=== PATIENT | female | born 1990 | race Caucasian/White ===

== ENCOUNTER 2020-06-07 08:47 | Outpatient (CLI) | payer BC, SELFPAY ==
[2020-06-07 10:31] LABS: Basophils Absolute Auto 0.1 K/mm3 (0.0-0.1); Basophils Percent Auto 0.5 % (0.2-1.2); Eosinophils Absolute Auto 0.1 K/mm3 (0-0.3); Eosinophils Percent Auto 1.1 % (0-4.4); Hematocrit 33.1 % (37.0-47.0); Hemoglobin 11.3 g/dL (12.0-15.0); Immature Granulocyte Absolute 0.13 K/mm3 (0.00-0.031); Immature Granulocyte Percent A 1.3 % (0-0.5); Lymphocytes Absolute Auto 2.12 K/mm3 (0.9-3.2); Lymphocytes Percent Auto 21.7 % (18.3-44.2); Mean Corpuscular HGB Conc 34.1 g/dl (32-36); Mean Corpuscular Hemoglobin 30.8 pg (26-34); Mean Corpuscular Volume 90.2 fl (80-100); Mean Platelet Volume 9.7 fl (7.4-10.4); Monocytes Absolute Auto 0.5 K/mm3 (0.1-0.6); Neutrophils Absolute Auto 6.9 K/mm3 (1.3-6.7); Neutrophils Percent Auto 70.4 % (45.5-73.1); Platelet Count Result 215 k/mm3 (150-375); Red Blood Count 3.67 M/mm3 (4.2-5.4); Red Cell Distribution Width 12.5 % (11.5-14.5); White Blood Count 9.8 K/mm3 (4.5-10.0)
[2020-06-07 10:45] LABS: Glucose 1 Hour PP 50gm Dose 165 mg/dL
== END 2020-06-07 08:48 | disposition home or self-care (01) ==
PROVIDERS: Visit Provider Student in an Organized Health Care Education/Training Program
DX: Z34.82 Encounter for supervision of other normal pregnancy, second trimester (principal); Z3A.00 Weeks of gestation of pregnancy not specified
CPT/HCPCS: 36415; 82947; 85025

== ENCOUNTER 2020-06-14 07:35 | Outpatient (CLI) | payer BC, SELFPAY ==
[2020-06-14 08:06] LABS: Glucose Fasting Gestational 96 mg/dL (>/=95)
[2020-06-14 09:28] LABS: Glucose 1 Hour Gest 131 mg/dL (>/=180)
[2020-06-14 11:07] LABS: Glucose 2 Hour Gest 126 mg/dL (>/= 155)
[2020-06-14 11:54] LABS: Glucose 3 Hour Gest 74 mg/dL (>/=140)
== END 2020-06-14 07:36 | disposition home or self-care (01) ==
PROVIDERS: Visit Provider Student in an Organized Health Care Education/Training Program
DX: R73.09 Other abnormal glucose (principal)
CPT/HCPCS: 36415; 82951; 82952

== ENCOUNTER 2020-07-05 11:34 | Outpatient (CLI) | payer BC, SELFPAY ==
[2020-07-05 12:02] LABS: Basophils Percent Auto 0.3 % (0.2-1.2); Eosinophils Absolute Auto 0.2 K/mm3 (0-0.3); Eosinophils Percent Auto 1.8 % (0-4.4); Hematocrit 32.9 % (37.0-47.0); Hemoglobin 10.9 g/dL (12.0-15.0); Immature Granulocyte Absolute 0.13 K/mm3 (0.00-0.031); Immature Granulocyte Percent A 1.3 % (0-0.5); Lymphocytes Absolute Auto 2.12 K/mm3 (0.9-3.2); Lymphocytes Percent Auto 20.6 % (18.3-44.2); Mean Corpuscular HGB Conc 33.1 g/dl (32-36); Mean Corpuscular Hemoglobin 29.8 pg (26-34); Mean Corpuscular Volume 89.9 fl (80-100); Mean Platelet Volume 9.5 fl (7.4-10.4); Monocytes Absolute Auto 0.8 K/mm3 (0.1-0.6); Monocytes Percent Auto 8.1 % (2.6-8.5); Neutrophils Percent Auto 67.9 % (45.5-73.1); Platelet Count Result 213 k/mm3 (150-375); Red Blood Count 3.66 M/mm3 (4.2-5.4); Red Cell Distribution Width 12.1 % (11.5-14.5); White Blood Count 10.3 K/mm3 (4.5-10.0)
[2020-07-05 12:58] LABS: HIV 1/2 Ab P24 Ag Result Negative (Negative)
[2020-07-06 07:05] LABS: Rapid Plasma Reagin Non-Reactive (NonReactive)
== END 2020-07-05 11:35 | disposition home or self-care (01) ==
LOC: ANHLAB 11:36
PROVIDERS: Visit Provider Student in an Organized Health Care Education/Training Program
DX: Z34.93 Encounter for supervision of normal pregnancy, unspecified, third trimester (principal); Z3A.00 Weeks of gestation of pregnancy not specified
CPT/HCPCS: 36415; 85025; 86592; 86703; G0432

== ENCOUNTER 2020-08-16 09:39 | Outpatient (CLI) | payer BC, SELFPAY ==
[2020-08-16] VITALS (8 sets, daily range): BP systolic 109–127; BP diastolic 73–80; PULSE 65–86
[2020-08-16 10:41] LABS: Basophils Percent Auto 0.3 % (0.2-1.2); Eosinophils Absolute Auto 0.1 K/mm3 (0-0.3); Eosinophils Percent Auto 1.1 % (0-4.4); Hematocrit 30.7 % (37.0-47.0); Hemoglobin 10.1 g/dL (12.0-15.0); Immature Granulocyte Percent A 1.1 % (0-0.5); Lymphocytes Absolute Auto 1.78 K/mm3 (0.9-3.2); Lymphocytes Percent Auto 20.4 % (18.3-44.2); Mean Corpuscular HGB Conc 32.9 g/dl (32-36); Mean Corpuscular Volume 88.2 fl (80-100); Monocytes Absolute Auto 0.6 K/mm3 (0.1-0.6); Monocytes Percent Auto 7.1 % (2.6-8.5); Neutrophils Absolute Auto 6.1 K/mm3 (1.3-6.7); Platelet Count Result 169 k/mm3 (150-375); Red Blood Count 3.48 M/mm3 (4.2-5.4); Red Cell Distribution Width 13.2 % (11.5-14.5); White Blood Count 8.7 K/mm3 (4.5-10.0)
--- NOTE | 2020-08-16 10:42 | PC.NURSE ---
1020--Pt reports elevated BP's at home and headache yesterday relieved with 1 dose of Tylenol. Reports mild headache today-07/10 with no Tylenol taken. Minimal swelling noted; denies RUQ pain; minimal visual disturbances that come and go.
[2020-08-16 10:43] LABS: Add Urine Microscopic? NO; Appearance Urine Clear (Clear); Bilirubin Urine Negative (Negative); Blood Urine Negative (Negative); Color Urine Straw (Yellow); Glucose Urine UA Negative (Negative); Ketones Urine Negative (Negative); Leukocyte Esterase Ur Negative LEU/UL (NEGATIVE); Nitrate Urine Negative (Negative); Protein Urine Negative (Negative); Specific Grav Ur 1.005 (1.001-1.035); Urobilinogen Urine Negative mg/dL (<2.0)
[2020-08-16 10:54] LABS: Creatinine Urine 29.1 mg/dL; Total Protein Urine Random 18 mg/dL; Ur Ttl Prot Creatinine Ratio 0.62 mg/mg (0-0.20)
[2020-08-16 11:30] LABS: Alanine Aminotransferase 15 U/L (4-35); Albumin Level 3.4 g/dL (3.5-5.1); Alkaline Phosphatase 100 U/L (38-126); Anion Gap 7 mmol/L (8-16); Aspartate Amino Transferase 23 U/L (14-36); Bilirubin,Total 0.2 mg/dL (0.2-1.3); Blood Urea Nitrogen 12 mg/dL (7-17); Calcium 9.2 mg/dL (8.4-10.2); Carbon Dioxide 22 mmol/L (22-30); Chloride 106 mmol/L (98-107); Estimated Glomerular Filt Rate > 60; Glucose 104 mg/dL (65-105); Potassium 3.9 mmol/L (3.4-5.0); Sodium 135 mmol/L (137-145); Uric Acid 7.1 mg/dL (2.5-7.5)
--- NOTE | 2020-08-16 12:16 | PC.NURSE ---
1145--Reported labs to Dr. Ramirez. DC orders given with orders to start 24hour urine and FU in office on Saturday.
== END 2020-08-16 12:05 | disposition home or self-care (01) ==
LOC: ANHOBOP 10:07 → ANHOBPP 08-22 07:58
PROVIDERS: Obstetrics & Gynecology; Visit Provider Student in an Organized Health Care Education/Training Program
DX: O13.9 Gestational [pregnancy-induced] hypertension without significant proteinuria, unspecified trimester (principal); Z3A.00 Weeks of gestation of pregnancy not specified
CPT/HCPCS: 36415; 59025; 80053; 81003; 82570; 84156; 84550; 85025; 87086; 99199

== ENCOUNTER 2020-08-17 11:05 | Outpatient (NON) | payer BC, SELFPAY ==
[2020-08-17 11:16] VITALS: BMI 28.8
[2020-08-17 11:34] LABS: Collection Time Urine 24 HOURS
[2020-08-17 12:09] LABS: Total Protein Urine Random 16 mg/dL
[2020-08-17 12:10] LABS: Total Protein Urine 24 Hr 368 MG/DAY (28-141); Total Volume 24 Hour Urine 2300 ml
[2020-08-17 12:10] LABS: Creatinine Urine 55.2 mg/dL; Patient Weight 178 Lbs
[2020-08-17 12:20] LABS: Creatinine Clearance Urine 100.5 ml/min (75-125); Total Volume 24 Hour Urine 2300 ml
== END 2020-08-17 11:06 ==
PROVIDERS: Obstetrics & Gynecology; Visit Provider Student in an Organized Health Care Education/Training Program
DX: Z34.90 Encounter for supervision of normal pregnancy, unspecified, unspecified trimester (principal); Z3A.00 Weeks of gestation of pregnancy not specified
CPT/HCPCS: 81050; 82575; 84156

== ENCOUNTER 2020-08-18 14:21 | Outpatient (CLI) | payer BC, SELFPAY ==
[2020-08-18 14:45] VITALS: BP 118/72; PULSE 79
[2020-08-18 15:00] VITALS: BP 114/71; PULSE 75
[2020-08-18 15:06] LABS: Basophils Percent Auto 0.4 % (0.2-1.2); Eosinophils Absolute Auto 0.1 K/mm3 (0-0.3); Eosinophils Percent Auto 1.2 % (0-4.4); Hemoglobin 10.5 g/dL (12.0-15.0); Immature Granulocyte Absolute 0.09 K/mm3 (0.00-0.031); Lymphocytes Absolute Auto 2.14 K/mm3 (0.9-3.2); Lymphocytes Percent Auto 23.4 % (18.3-44.2); Mean Corpuscular HGB Conc 32.8 g/dl (32-36); Mean Corpuscular Hemoglobin 28.7 pg (26-34); Mean Corpuscular Volume 87.4 fl (80-100); Mean Platelet Volume 10.8 fl (7.4-10.4); Monocytes Absolute Auto 0.6 K/mm3 (0.1-0.6); Monocytes Percent Auto 6.9 % (2.6-8.5); Neutrophils Absolute Auto 6.2 K/mm3 (1.3-6.7); Neutrophils Percent Auto 67.1 % (45.5-73.1); Platelet Count Result 181 k/mm3 (150-375); Red Blood Count 3.66 M/mm3 (4.2-5.4); Red Cell Distribution Width 13.2 % (11.5-14.5); White Blood Count 9.2 K/mm3 (4.5-10.0)
[2020-08-18 15:15] VITALS: BP 109/70
[2020-08-18 15:20] LABS: Alanine Aminotransferase 16 U/L (4-35); Albumin Level 3.7 g/dL (3.5-5.1); Alkaline Phosphatase 107 U/L (38-126); Anion Gap 6 mmol/L (8-16); Aspartate Amino Transferase 25 U/L (14-36); Bilirubin,Total 0.3 mg/dL (0.2-1.3); Blood Urea Nitrogen 13 mg/dL (7-17); Calcium 9.6 mg/dL (8.4-10.2); Carbon Dioxide 22 mmol/L (22-30); Chloride 105 mmol/L (98-107); Estimated Glomerular Filt Rate > 60; Glucose 94 mg/dL (65-105); Sodium 133 mmol/L (137-145); Uric Acid 7.3 mg/dL (2.5-7.5)
[2020-08-18 15:45] VITALS: BP 122/82
[2020-08-18 16:00] VITALS: BP 122/82; PULSE 75
== END 2020-08-18 16:00 | disposition home or self-care (01) ==
LOC: ANHOBOP 14:25
PROVIDERS: Visit Provider Student in an Organized Health Care Education/Training Program
DX: O13.9 Gestational [pregnancy-induced] hypertension without significant proteinuria, unspecified trimester (principal); Z3A.00 Weeks of gestation of pregnancy not specified
CPT/HCPCS: 36415; 59025; 80053; 84550; 85025

== ENCOUNTER 2020-08-22 14:27 | Outpatient (CLI) | payer BC, SELFPAY ==
[2020-08-22 14:52] LABS: Hematocrit 31.5 % (37.0-47.0); Hemoglobin 10.4 g/dL (12.0-15.0); Mean Corpuscular Hemoglobin 29.1 pg (26-34); Mean Platelet Volume 11.2 fl (7.4-10.4); Platelet Count Result 166 k/mm3 (150-375); Red Blood Count 3.58 M/mm3 (4.2-5.4); Red Cell Distribution Width 13.3 % (11.5-14.5); White Blood Count 9.6 K/mm3 (4.5-10.0)
[2020-08-23 07:40] LABS: Rapid Plasma Reagin Non-Reactive (NonReactive)
== END 2020-08-22 14:28 | disposition home or self-care (01) ==
PROVIDERS: Visit Provider Student in an Organized Health Care Education/Training Program
DX: Z34.93 Encounter for supervision of normal pregnancy, unspecified, third trimester (principal); Z3A.00 Weeks of gestation of pregnancy not specified
CPT/HCPCS: 36415; 85027; 86592; 86850; 86900; 86901

== ENCOUNTER 2020-08-23 05:44 | Inpatient (IN) | payer BC, SELFPAY ==
--- NOTE | 2020-08-02 15:29 | PC.NURSE ---
PATIENT IS A PREV C/S. PATIENT STATES SHE WANTS TO --CONSENT SIGNED. PATIENT STATES DR GUNN IS SCHEDULING HER FOR C/S ON 08/23/[address] GUNN FEELS BABY IS BIG AND BABY IS BREECH AT THIS TIME PATIENT GIVEN INSTRUCTED FOR C/S-NPO AFTER MIDNIGHT THE NIGHT BEFORE SURGERY,BE IN OB 2 HOURS BEFORE SURGERY TIME AND GIVEN REQUISITION FOR PRE-OP LAB DRAW
[2020-08-23] VITALS (64 sets, daily range): BP systolic 87–128; BP diastolic 54–89; PULSE 51–88; RESP 14–18; TEMP 36.1–36.9; O2SAT 97–100; BMI 29.2
[2020-08-23] MEDS: LACTATED RINGERS 1,000 ML 125 ML IV CONT (06:38)
--- NOTE | 2020-08-23 06:42 | LDADM ---
This patient, Naty Barnes, was admitted to Labor/Delivery/Recovery 120 on 08/23/20 at 05:44. Plans for labor, pain management and were discussed with patient. Patient/family oriented to hospital policies and general routines including ID bracelet, bed and alarms, visiting hours, pain management, procedures, bathroom and other care routines, personal items, smoking policy, room service/diet and guest tray routines, infant security routines, and visiting hours. Patient/Family are encouraged to report perceived risks to care and to ask questions if they do not understand what they are told or what they should do. See OBIX for further documentation.
--- NOTE | 2020-08-23 07:11 | PM.IMHP ---
H&P: HPI History of Present Illness Date/Time: 08/23/20 07:11 Patient is a last menstrual period 11/24/2019. Patient is currently 39w gestation with an estimated due date of August 30, 2020. Patient is dated by her last menstrual period consistent with an ultrasound on January 25, 2020 at 9 weeks gestation performed at an outside facility. Patient established care at our practice as a transfer patient at 20w gestation who moved from [place], [place]. She has a history of a previous section x 1. Patient desired a TOLAC, however, fetus currently in breech presentation and has been in breech presentation for several weeks. Fetus has also persistently been suspected LGA with EFW >97-99%. Given this factors as well as previous section, decision was made to proceed with a repeat C/S. Patient does have a history of preeclampsia during previous . BP measurements have remained WNL throughout this and patient was on low-dose ASA. Patient reports feeling well today. Denies any vaginal bleeding, leakage of fluid, or contractions. Reports good movement. Chief Complaint: Repeat section Narrative: Naty Barnes is a 30 year old female Review of Systems Review of Systems: All systems reviewed & are unremarkable except as noted in HPI and below Constitutional: Constitutional: Reports as per HPI and Reports no additional constitutional complaints Eyes: Eyes: Reports as per HPI and Reports no additional eye complaints ENT: Reports system reviewed and no additional complaints, except as documented, Reports as per HPI, Reports Normal hearing present and Denies headache(s) Cardiovascular: Cardiovascular: Reports as per HPI, Reports no additional cardiovascular complaints, Denies chest pain and Denies dyspnea Respiratory: Respiratory: Reports as per HPI, Reports no additional respiratory complaints, Denies cough and Denies dyspnea Gastrointestinal: Gastrointestinal: Reports as per HPI, Reports no additional gastrointestinal complaints, Denies abdominal pain, Denies change in bowel habits, Denies change in stool character, Denies nausea and Denies vomiting Genitourinary: Genitourinary: Reports no additional female genitourinary complaints, Reports as per HPI, Denies abnormal vaginal bleeding, Denies genital lesions, Denies hot flashes, Denies dyspareunia, Denies pelvic pain, Denies sexual dysfunction, Denies urinary incontinence, Denies vaginal discharge, Denies vaginal dryness and Denies vaginal odor Musculoskeletal: Musculoskeletal: Reports no additional musculoskeletal complaints and Reports as per HPI Integumentary/Breasts: Skin/Breast: Reports system reviewed and no additional complaints, except as docu, Reports as per HPI, Denies breast pain and Denies nipple discharge Neurologic: Reports system reviewed and no additional complaints, except as documented, Reports as per HPI, Reports Normal hearing present and Denies headache(s) Psychiatric: Psychiatric: Reports no additional psychiatric complaints, Reports as per HPI, Denies anxiety and Denies depression Endocrine: Endocrine: Reports no additional endocrine complaints and Reports as per HPI Hematologic/Lymphatic: Hematologic/Lymphatic: Reports no additional hematologic/lymphatic complaints and Reports as per HPI Allergic/Immunologic: Allergic/Immunologic: Reports no additional allergic/immunologic complaints and Reports as per HPI PMF Past Medical History Medical History Anxiety 2005 Asthma 2016 Depression 2017 History of hyperlipidemia History of pre-eclampsia 08/2017 Surgical History Surgical History History of section 08/2017 History of colonoscopy 2007 History of left nephrectomy 1993 History of tonsillectomy and adenoidectomy Family History Family History (Reviewed 08/23/20 @ 07:16 by Hayder Don MD
[2020-08-23] MEDS: GENTAMICIN SULFATE INJ 340 MG in DEXTROSE 5% 100 ML 108.5 MG IVPB (07:14)
--- NOTE | 2020-08-23 07:15 | WPDANESEPPF ---
Anes - Initial Pre Proc Eval Date/Time: 08/23/20 07:15 Surgeon: Elvi Cyr MD Pre Op Diagnosis: Repeat C/S Patient Data Age: 30 Gender: F Height: 5 ft 6 in Weight: 82 kg Last Vital Signs Pulse 88 08/23/20 06:22 BP 117/88 08/23/20 06:22 Allergies Allergy/AdvReac Type Severity Reaction Status Date / Time Penicillins Allergy Unknown rash Verified 08/19/20 14:32 itching and gastritis Home Medications Medication Instructions Recorded Confirmed Type aspirin 81 mg tablet,delayed 81 mg PO DAILY 04/13/20 History release cetirizine 10 mg capsule 10 mg PO DAILY 04/13/20 History prenat.vits,german,wux-[id number] 1 tablet PO DAILY 04/13/20 History breast pump #1 ea 07/26/20 07/26/20 Rx Patient hx anesthesia problems: none Family hx anesthesia problems: none PMFSH Past Medical History Medical History Anxiety 2004 Asthma 2015 Depression 2017 History of hyperlipidemia History of pre-eclampsia 08/2017 Surgical History Surgical History History of section 08/2017 History of colonoscopy 2006 History of left nephrectomy 1993 History of tonsillectomy and adenoidectomy Family History Family History Grandparent Acute myocardial infarction Carcinoma of colon Father Hyperlipidemia Hypertension Mother , 2007 Brain cancer Bone cancer Lung cancer Other Patient's mother is Social History Social History Smoking status: Former smoker Alcohol intake: never Substance use: never Spiritual care concerns: No Anes - Eval Final PreProcedure Day of Procedure 08/23/20 07:15 Patient weight: overweight Heart: regular rate and rhythm Lungs: clear to auscultation Airway: Mallampati scale class II Neurological: alert and oriented Last oral intake: >/= 8 hours ASA classification: III Emergent: no Anesthetic plan: proceed Anesthesia type and monitoring: regional spinal and standard monitoring Informed Consent: The patient's anesthetic plan and its attendant risks and benefits were discussed with the patient/family/POA. Questions were solicited and answers provided to the satisfaction of the patient/family/POA.
--- NOTE | 2020-08-23 07:20 | WPDHPUPDATE1 ---
History and Physical Update Update Date/Time: 08/23/20 07:20 History and Physical has been reviewed, including an updated exam of the patient. There are NO changes in the patient's condition. Risks, benefits, and alternatives have been discussed and questions answered. Patient agrees to proceed with procedure.
--- NOTE | 2020-08-23 07:20 | PM.PROC ---
Procedure Note - Detailed Date of procedure: 08/23/20 Pre-op diagnosis: Repeat C/S Previous section x 1 Breech presentation Suspected macrosomia Post-op diagnosis: same Procedure performed: Repeat low transverse section via Pfannenstiel Description of procedure: The patient was taken to the operating room, where she self-transferred to the operating room table. Spinal anesthesia was administered and found to be adequate. The patient was placed in dorsal supine position with a leftward tilt. She was prepped and draped in the usual sterile fashion. Spinal anesthesia was tested and found to be adequate. A Pfannenstiel skin incision was made with a scalpel and carried through to underlying layer of fascia with the Bovie. The fascia was incised in the midline and the incision was extended laterally with the use of forceps and Perales scissors. The inferior aspect of the fascial incision was grasped with Isabela clamps, elevated, and the underlying rectus muscle were dissected off with Perales scissors. Attention was then turned to the superior aspect of the fascial incision, which in a similar manner, was grasped with Isabela clamps, elevated, and the underlying rectus muscles were also dissected off with Perales scissors. Minimal scar tissue was noted and transected with Perales scissors. The rectus muscles were in the midline and the peritoneal cavity was entered bluntly. This incision was extended superiorly and inferiorly with good visualization of the bladder and care was taken to avoid blood vessels. A bladder blade was inserted. The vesicouterine peritoneum was identified and incised sharply with Metzenbaum scissors. This incision was extended laterally with Metzenbaum scissors and a bladder flap was created digitally. The bladder blade was replaced. A low-transverse uterine incision was made with a scalpel. This incision was extended laterally with bandage scissors. Amniotomy was performed. Clear amniotic fluid was noted. The infant's buttocks were noted right at the level of the incision, grasped, and delivered through the incision. The infant was slowly guided through the incision. The infant was gently rotated to the left side. The infant's right lower extremity was flexed and delivered. The infant was rotated to the right side where, similarly, the 's left lower extremity was delivered. A surgical towel was wrapped around the and the was guided through the incision to the level of the scapulae. The was rotated to the left side and the right arm was flexed and delivered. The infant was again rotated to the right side and the left arm was flexed and delivered. The infant's head was then flexed and delivered easily and atraumatically. The 's nose and mouth were suctioned bulb suction. The infant was crying spontaneously. The cord was clamped and cut and the infant was handed off to waiting nursing staff. A segment of cord was collected for cord gases. Cord blood was also collected. The placenta was then delivered manually with gentle uterine massage. Uterus was exteriorized and cleared of all clots and debris. The uterine incision was reapproximated with 0 Vicryl in a running, locked fashion. An area beneath the incision was noted to be bleeding and a few figure of eight sutures using 0 Vicryl were placed ensuring hemostasis. A second imbricating layer using 0 Monocryl performed. Excellent hemostasis was noted. On inspection, the uterus, ovaries, and fallopian tubes appeared to be normal bilaterally. The uterus was replaced into the abdominal cavity. The gutters were cleared of all clots and debris. The uterine incision was inspected again and noted to be hemostatic. Hemaderm was applied across the uterine incision. Interceed was also applied across the uterine incision and anterior surface of the uterus. The peritoneum was reapproximated with 2-0 Monocryl. The fascia was then closed with 0 Vicryl in a running fashion. The subcu
[2020-08-23] MEDS: CLINDAMYCIN 900 MG/D5W 50 ML 900 MG/50 ML PIGGYBACK 50 MG IVPB (07:26)
--- NOTE | 2020-08-23 09:08 | PM.OBPRVD ---
OB - Delivery Note Procedure Delivery date: 08/23/20 Procedure: Procedures Operation Date: 08/23/20 07:30 Actual Procedures Side Surgeon p Section Elvi Cyr MD events: Previous Route of delivery: Specimen: Yes (placenta and cord, cord blood, cord gases) Quantitative Blood Loss (ml): 220 Anesthesia type: Spinal Disposition: floor Complications: No immediate complications [place] Baby Date of : 08/23/20 Time of : 07:55 Weeks of gestation at delivery: 39 gender: Male Weight (pounds): 8 Weight (ounces): 6 presentation: carlos breech Placenta delivery description: Manual Removal cord vessel description: 3 Vessels score one minute: 9 score five minutes: 9
[2020-08-23] MEDS: OXYTOCIN 30 UNITS/NS 500 ML 30 UNITS/500 ML BAG 125 UNITS IV CONT (09:48)
[2020-08-23] MEDS: IBUPROFEN 600 MG TABLET PO (20:16)
[2020-08-24 04:15] VITALS: BP 106/71; PULSE 82; RESP 14; TEMP 37; O2SAT 98
[2020-08-24] MEDS: IBUPROFEN 600 MG TABLET PO ×3 (04:22→17:05)
[2020-08-24 06:51] LABS: Basophils Percent Auto 0.3 % (0.2-1.2); Eosinophils Absolute Auto 0.1 K/mm3 (0-0.3); Eosinophils Percent Auto 0.9 % (0-4.4); Hematocrit 29.6 % (37.0-47.0); Hemoglobin 9.4 g/dL (12.0-15.0); Immature Granulocyte Absolute 0.09 K/mm3 (0.00-0.031); Immature Granulocyte Percent A 0.9 % (0-0.5); Lymphocytes Percent Auto 13.7 % (18.3-44.2); Mean Corpuscular HGB Conc 31.8 g/dl (32-36); Mean Corpuscular Hemoglobin 28.1 pg (26-34); Mean Corpuscular Volume 88.6 fl (80-100); Mean Platelet Volume 11.3 fl (7.4-10.4); Monocytes Absolute Auto 0.6 K/mm3 (0.1-0.6); Monocytes Percent Auto 5.9 % (2.6-8.5); Neutrophils Absolute Auto 7.5 K/mm3 (1.3-6.7); Neutrophils Percent Auto 78.3 % (45.5-73.1); Platelet Count Result 164 k/mm3 (150-375); Red Blood Count 3.34 M/mm3 (4.2-5.4); Red Cell Distribution Width 13.4 % (11.5-14.5); White Blood Count 9.5 K/mm3 (4.5-10.0)
[2020-08-24 07:15] VITALS: BP 116/72; PULSE 73; RESP 18; TEMP 36.9; O2SAT 100
--- NOTE | 2020-08-24 07:35 | WPDANLDPN2 ---
Anes-Prog Note L&D Date/Time: 08/24/20 07:35 Comfortable throughout: section Neuraxial method: spinal Epidural/Spinal procedure site: clean & non-tender Neuro status: Neuro function grossly intact. Cardiovascular status: normal Respiratory status: normal Airway patency: baseline Mental status: baseline Post-Op hydration status: normal Vital Signs: Last Vital Signs Temp 37.0 C 08/24/20 04:15 Pulse 82 08/24/20 04:15 Resp 14 08/24/20 04:15 BP 106/71 08/24/20 04:15 Pulse Ox 98 08/24/20 04:15 Pain score (VAS): 0 I/O: Intake & Output 08/23/20 08/23/20 08/24/20 15:59 23:59 07:59 Intake Total 100 1500 600 Output Total 970 3600 1500 Balance -397 -6436 -787 Post-procedural complaints: none Patient feedback: Patient satisfied with anesthetic care.
--- NOTE | 2020-08-24 07:35 | WPDANLDNPN2 ---
Anes-Prog Note L&D-Neuraxial Date/Time: 08/24/20 07:35 Neuraxial medications: intrathecal PF morphine Opiod-related complaints: none Patient feedback: Patient satisfied with post-operative pain management.
[2020-08-24] MEDS: DOCUSATE SODIUM 100 MG CAPSULE PO ×2 (08:36→17:02)
[2020-08-24] MEDS: POLYSACCHARIDE IRON COMPLEX 150 MG CAPSULE PO ×2 (08:36→17:02)
[2020-08-24] MEDS: MULTIVIT/MIN/PREN/FOL AC/IRON TABLET 1 TAB PO (08:36)
--- NOTE | 2020-08-24 10:37 | PM.OBPNVD ---
OB - PN: Subj Subjective Date/time seen: 08/24/20 10:37 Patient doing well this morning. Pain well controlled with medication. Denies any headache, chest pain, shortness of breath, nausea, or vomiting. Tolerating p.o. diet. Ambulating without difficulty. Feliciano catheter removed this morning. Has voided once since removal. No flatus yet. OB - PN: Obj Data Labs CBC & Chem 7: 08/24/20 04:22 Labs: Laboratory Results - last 24 hr 08/24/20 04:22 WBC 9.5 RBC 3.34 L Hgb 9.4 L Hct 29.6 L MCV 88.6 MCH 28.1 MCHC 31.8 L RDW 13.4 Plt Count 164 MPV 11.3 H Immature Gran % (Auto) 0.9 H Neut % (Auto) 78.3 H Lymph % (Auto) 13.7 L Yancey % (Auto) 5.9 Eos % (Auto) 0.9 Baso % (Auto) 0.3 Lymph # (Auto) 1.30 Yancey # (Auto) 0.6 Eos # (Auto) 0.1 Baso # (Auto) 0.0 Abs Immat Gran (auto) 0.09 H Absolute Neuts (auto) 7.5 H Absolute Nucleated RBC 0.0 Nucleated RBC % 0.0 OB - PN A/P Assessment and Plan (1) Delivery by section using transverse incision of lower segment of uterus: Code(s): O82 - Encounter for delivery without indication Status: Acute Assessment and Plan: POD#1 doing well continue routine postoperative care pain management PRN encourage ambulation Time Spent With Patient Time: Total time spent is greater than 50% in coordination of care (as documented) at patient's floor/unit and/or counseling patient: Exam Const: General: cooperative, comfortable and no acute distress GI: Inspection: normal to inspection GI Palp: Yes Soft to palpation and Yes Tenderness to palpation present (GI) (appropriately tender) Other: fundus below umbilicus, inc c/d/i Extrem: Right lower extremity: no edema Left lower extremity: no edema Other: no calf tenderness
[2020-08-24] MEDS: SIMETHICONE 80 MG TAB.CHEW PO (17:03)
[2020-08-24 20:00] VITALS: BP 107/73; PULSE 74; RESP 16; TEMP 37; O2SAT 99
[2020-08-25] MEDS: IBUPROFEN 600 MG TABLET PO ×2 (00:25→08:15)
[2020-08-25] MEDS: POLYSACCHARIDE IRON COMPLEX 150 MG CAPSULE PO (08:15)
[2020-08-25] MEDS: DOCUSATE SODIUM 100 MG CAPSULE PO (08:15)
[2020-08-25] MEDS: MULTIVIT/MIN/PREN/FOL AC/IRON TABLET 1 TAB PO (08:15)
--- NOTE | 2020-08-25 08:15 | PC.NURSE ---
Patient instructed to view the discharge video Mother & Baby Care, The First Two Weeks . Patient was given the opportunity and encouraged to ask questions. Patient verbalized understanding of information shared and has been given the mother/baby guide for home reference.
--- NOTE | 2020-08-25 08:16 | PM.OBPNVD ---
OB - PN: Subj Subjective Date/time seen: 08/25/20 08:16 Patient doing well this morning. pain well controlled with medication. Denies any headache, chest pain, shortness of breath, nausea, or vomiting. Tolerating p.o. diet. Ambulating well. Voiding without difficulty. Passing flatus. OB - PN: Obj Data Labs CBC & Chem 7: 08/24/20 04:22 OB - PN A/P Assessment and Plan (1) Delivery by section using transverse incision of lower segment of uterus: Code(s): O82 - Encounter for delivery without indication Status: Acute Assessment and Plan: POD#2 doing well continue routine postoperative care patient requesting dc home today, which I think is reasonable emergency precautions reviewed advised to f/u in 2 weeks for f/u visit and wound check Time Spent With Patient Time: Total time spent is greater than 50% in coordination of care (as documented) at patient's floor/unit and/or counseling patient: Exam Const: General: cooperative, healthy appearing, comfortable and no acute distress GI: Inspection: normal to inspection GI Palp: Yes Soft to palpation and No Tenderness to palpation present (GI) Other: fundus firm below umbilicus inc c/d/i Extrem: Right lower extremity: no edema Left lower extremity: no edema Other: no calf tenderness
--- NOTE | 2020-08-25 08:18 | P.DS_ITS ---
DS: Admitting Diagnosis Admitting Diagnosis Admitting Diagnosis: Repeat section OB - DS: Summary OB Procedures : None OB Procedures Intrapartum: OB Procedures: : None Peripartum Data Procedures: Procedures Operation Date: 08/23/20 07:30 Actual Procedures Side Surgeon p Section Elvi Cyr MD Time Spent with Patient Time attestation: Total time spent providing and/or coordinating discharge services: DS: Data Data Completed and Pending Pending studies at discharge: Pending at discharge 08/23/20 07:56 Surgical [PTH] Routine Discharge Plan Discharge Attending physician on discharge: Elvi Cyr Discharging Clinician: Elvi Cyr Anticipated Discharge Date/Time: 08/25/20 08:19 Patient Disposition: Home, Self-Care Activity: as tolerated and pelvic rest Diet: as tolerated and regular Discharge Instructions: Call office ([phone]) to schedule the following appointments: 1. Postoperative/wound check in 2 weeks. 2. visit in 4-6 weeks. You may take Ibuprofen 600mg every 6 hours as needed for pain. You were only taking Ibuprofen in the hospital following delivery. Therefore, I did not send in a prescription for a stronger pain medication. If you develop worsening pain after going home and with increased activity, please call the office and I will send in a stronger medication for you. No driving for at least two weeks. Pain medication may make you constipated. It may be helpful to take an [id number]-lnpudsl stool softener, such as Colace and/or Senokot, along with the pain medication to help lessen constipation. Call office or go to ED for pain not controlled with medication, headache, chest pain, shortness of breath, fever, chills, persistent nausea or vomiting, severe abdominal pain, heavy vaginal bleeding >2 pads/hour, foul vaginal discharge or odor, any redness near incision, severe pain, pus or drainage from incision site, or problems with your breasts. Patient Instructions: Antibiotic Form Stand Alone Forms: General Discharge Information Follow-up/Referrals: Elvi Cyr MD [Physician] - Discharge Medications: Continued prenat.vits,german,oeb-qpue-ekdet Tablet 1 tablet PO DAILY RF: 0 Discontinued aspirin 81 mg tablet,delayed release (DR/EC) 81 mg PO DAILY RF: 0 No Action (DME) breast pump [Pump In Style Advanced] Device See Rx Instructions .ROUTE .MEDSULY Qty: 1 RF: 0 Date of admission: 08/23/20 05:44 Primary Care Provider: PHYSICIAN,METAL BUILDING ASSEMBLER Admitting Provider: Elvi Cyr Attending physician on admission: Elvi Cyr Condition: Stable
[2020-08-25 08:54] VITALS: BP 124/77; PULSE 98; RESP 18; TEMP 37.6; O2SAT 99
--- NOTE | 2020-08-25 10:38 | PC.NURSE ---
Consulted with patient, reviewed infant feeding cues, frequencies, duration of feedings, feeding elimination flow sheet, and signs of adequate intake. Demonstrated stimulation techniques to wake infant for feeding. Assisted with infant to breast. Reviewed positioning/alignment, holding breast and asymmetrical latch on. Infant was able to latch correctly. Infant nursed eagerly, with steady draws and frequent swallowing noted. Reviewed signs of a correct latch, effective nursing and suck swallow ratio. Infant was able to maintain latch without discomfort to mother. Nipple care reviewed. Instructed mother to call out for RN assistance if she is unable to latch for feeding or she has discomfort with nursing. Instructed feeding should be initiated three hours from start of last feeding or if feeding cues are noted before. Mother voiced understanding of information shared. Mother verbalizes she is able to independently latch with appropriate positioning/alignment. She states she has nipple discomfort, is feeding as required and waking infant to feed if needed. latches with wide open mouth, demonstrated ways to maintain deep latch. has good movement of his tongue. Infant has had 11 effective feedings in the past 24 hours, and is currently meeting outcomes for weight, output, jaundice and feeding frequencies. Mother states she feels confident to continue effective at home. Reviewed transition to breast milk, signs of adequate intake, and engorgement/relief. Instructed to call ICP if intake/output less than required. Reviewed community resources on the [facility] website and in the Mom/Baby guide. Information on outpatient services provided. Mother has no further questions at this time.
--- NOTE | 2020-08-25 10:41 | PC.NURSE ---
Infant had bleeding from circumcision site with diaper change, reported to primary RN.
== END 2020-08-25 11:37 | disposition home or self-care (01) | DRG 788 ==
LOC: ANHLDR 05:48 → ANHOB2 11:24
PROVIDERS: Admitting Provider Student in an Organized Health Care Education/Training Program; Visit Provider Student in an Organized Health Care Education/Training Program
PROC: 10D00Z1 Extraction of Products of Conception, Low, Open Approach (ICD-10-PCS; CPT 59514; principal; 2020-08-23 07:30)
DX: O34.211 Maternal care for low transverse scar from previous cesarean delivery (principal); Z37.0 Single live birth; Z3A.39 39 weeks gestation of pregnancy; O36.63X0 Maternal care for excessive fetal growth, third trimester, not applicable or unspecified; O32.1XX0 Maternal care for breech presentation, not applicable or unspecified; O36.8330 Maternal care for abnormalities of the fetal heart rate or rhythm, third trimester, not applicable or unspecified
CPT/HCPCS: 36415; 85025; 85027; 86592; 86850; 86900; 86901; 88307; A9270; J0131; J1580; J2274; J2370; J2405; J2590; J7120

== ENCOUNTER 2020-12-29 19:50 | Emergency (ER) | payer BC, SELFPAY ==
[2020-12-29 20:00] VITALS: BP 123/84; PULSE 66; RESP 13; TEMP 36.4; O2SAT 100
[2020-12-29 20:05] VITALS: PULSE 66; RESP 16; TEMP 36.4; O2SAT 100
--- NOTE | 2020-12-29 20:37 | ED.HA ---
HPI - Headache General Chief Complaint: Headache Stated Complaint: Vision changes with Migraine Time Seen by Provider: 12/29/20 20:19 Source: patient Mode of arrival: ambulatory Limitations: no limitations History of Present Illness HPI Narrative: Patient is a 30-year-old female complaining of migraine headache that started a few days ago. Patient states that her headache is frontal, throbbing, nonradiating 8 out of 10 accompanied by blurred vision which she describes as aura which usually gets when she gets a migraine but this time it just lasted longer than usual. Patient states that she has a history of migraines and this is her typical headache. Patient states that this is her third migraine in 2 weeks. Patient denies any speech disturbance, focal weakness or numbness, unsteady gait, neck pain or stiffness, fever or chills. Related Data Home Medications Medication Instructions Recorded Confirmed prenat.vits,german,[id number] 1 tablet PO DAILY 04/13/20 08/23/20 Allergies Allergy/AdvReac Type Severity Reaction Status Date / Time Penicillins Allergy Unknown rash Verified 12/29/20 19:51 itching and gastritis Review of Systems Review of Systems: All systems reviewed & are unremarkable except as noted in HPI and below Constitutional: Constitutional: Denies body ache(s), Denies chills, Denies excessive sweating, Denies fatigue, Denies fever(s), Denies headache(s), Denies lethargy, Denies malaise, Denies weakness and Denies weight loss Eyes: Eyes: Denies blurry vision, Denies change in vision and Denies loss of vision ENT: Denies dizziness, Denies ear discharge, Denies headache(s), Denies lip swelling, Denies epistaxis, Denies nasal congestion, Denies neck pain, Denies throat swelling and Denies tongue swelling Cardiovascular: Cardiovascular: Denies chest pain, Denies chest pain at rest, Denies chest pain with activity, Denies diaphoresis, Denies rapid heart rate, Denies edema, Denies irregular heart rhythm, Denies lightheadedness, Denies palpitations, Denies dyspnea and Denies dyspnea on exertion Respiratory: Respiratory: Denies chest congestion, Denies cough, Denies hemoptysis, Denies dyspnea and Denies dyspnea on exertion Gastrointestinal: Gastrointestinal: Denies abdominal pain, Denies melena, Denies hematochezia, Denies diarrhea, Denies nausea, Denies vomiting and Denies hematemesis Musculoskeletal: Musculoskeletal: Denies abnormal gait, Denies deformity, Denies joint swelling, Denies limited range of motion, Denies neck pain and Denies numbness Neurologic: Denies Abnormal speech present, Denies abnormal gait, Denies confusion, Denies dizziness, Denies focal weakness, Denies loss of vision, Denies numbness, Denies Sensory deficit (Neuro) and Denies weakness Psychiatric: Psychiatric: Denies confusion, Denies depression, Denies auditory hallucinations, Denies homicidal ideation and Denies suicidal ideation Endocrine: Endocrine: Denies cold intolerance, Denies excessive sweating, Denies fatigue, Denies heat intolerance and Denies palpitations Hematologic/Lymphatic: Hematologic/Lymphatic: Denies easy bleeding and Denies easy bruising Allergic/Immunologic: Allergic/Immunologic: Denies lip swelling, Denies throat swelling and Denies tongue swelling PMFSH Past Medical History Medical History Anxiety 2005 Asthma 2016 Depression 2017 History of hyperlipidemia History of pre-eclampsia 08/2017 Surgical History Surgical History History of section x2 History of colonoscopy 2006 History of left nephrectomy 1993 History of tonsillectomy and adenoidectomy Family History Family History Grandparent Acute myocardial infarction Carcinoma of colon Father Hyperlipidemia Hypertension Mother , 2007 Brain cancer B
[2020-12-29] MEDS: diphenhydrAMINE HCl INJ 50 MG/ML VIAL 25 MG IV PUSH (20:59)
[2020-12-29] MEDS: SODIUM CHLORIDE 0.9% IV 1,000 ML 999 ML IV CONT (20:59)
[2020-12-29] MEDS: METOCLOPRAMIDE HCL INJ 10 MG/2 ML VIAL IV PUSH (20:59)
--- NOTE | 2020-12-29 21:54 | PC.NURSE ---
pt refused CT, notified, CT called to cancel.
[2020-12-29 22:39] VITALS: BP 123/81; PULSE 68; RESP 16; TEMP 36.7; O2SAT 100
== END 2020-12-29 22:39 | disposition home or self-care (01) ==
PROVIDERS: Emergency Provider Emergency Medicine
DX: G43.909 Migraine, unspecified, not intractable, without status migrainosus (principal); Z90.5 Acquired absence of kidney
CPT/HCPCS: 81025; 96361; 96374; 96375; 99284; J1200; J2765; J7030

== ENCOUNTER → 2021-01-10 09:48 | Outpatient (CLI) | payer BC, SELFPAY ==
--- NOTE | ~2021-01-10 | MR_ITS ---
EXAMINATION: MR brain/brain stem wo con DATE: 01/10/2021 10:20 INDICATION: Migraine headache with aura. TECHNIQUE: Magnetic resonance imaging (MRI) of the brain and brainstem was performed without intraven ous contrast. Sequences included sagittal and axial T1-weighted FSE, axial diffusion-weighted FS EPI, axial T2*-weighted GRE, axial T2-weighted FLAIR Propeller, and axial T2-weighted Propeller. Apparent diffusion coefficient (ADC) maps were created. COMPARISON: None. FINDINGS: There is a mildly increased T2-weighted signal intensity in the bilateral frontoparietal de ep white matter. There is no intracranial hemorrhage, acute infarction, or abnormal intracranial mass lesion. The ventricles are normal in size. The orbits are normal. The mastoid air cells are normal. There are trace bilateral mastoid effusions. IMPRESSION: 1. Mild nonspecific cerebral white matter disease. The differential diagnosis includes premature lunchroom worker tiny small vessel ischemic disease (especially if the patient has cardiovascular risk factors), demyel inating disease such as multiple sclerosis, drug abuse, vasculitis, or reactive astrocytosis (gliosis ) secondary to nonspecific etiology. Reviewed, dictated and finalized at location A. IMPRESSION: 1. Mild nonspecific cerebral white matter disease. The differential diagnosis i ncludes premature chronic small vessel ischemic disease (especially if the ying ent has cardiovascular risk factors), demyelinating disease such as multiple sc lerosis, drug abuse, vasculitis, or reactive astrocytosis (gliosis) secondary t o nonspecific etiology.
== END ==
PROVIDERS: PCP Nurse Practitioner Family; Visit Provider Nurse Practitioner Family
DX: G43.109 Migraine with aura, not intractable, without status migrainosus (principal); R93.0 Abnormal findings on diagnostic imaging of skull and head, not elsewhere classified
CPT/HCPCS: 70551

== ENCOUNTER 2021-07-18 11:28 | Outpatient (CLI) | payer BC, SELFPAY ==
[2021-07-18 13:16] LABS: Total Triiodothyronine (T3) 2.09 NG/ML (0.97-1.69)
[2021-07-18 21:13] LABS: Free T4 Free Thyroxine 1.11 ng/mL (0.78-2.19)
== END 2021-07-18 11:29 | disposition home or self-care (01) ==
PROVIDERS: Visit Provider Obstetrics & Gynecology
DX: R53.83 Other fatigue (principal)
CPT/HCPCS: 36415; 84439; 84443; 84480

== ENCOUNTER 2022-05-24 08:56 | Emergency (ER) | payer BC, SELFPAY ==
--- NOTE | ~2022-05-24 | XR_ITS ---
XR chest 2V DATE: 05/24/2022 09:45 INDICATION: Cough. Flu since Saturday. TECHNIQUE: PA and lateral views COMPARISON: None FINDINGS: Normal heart size. No hilar or mediastinal enlargement. No pulmonary infiltrate or consolid ation, pleural effusion or pulmonary vascular congestion or pneumothorax. Included skeletal structure s are unremarkable. IMPRESSION: No active cardiopulmonary disease Reviewed, dictated and finalized at location A. [facility] BOSS
[2022-05-24 08:59] VITALS: BP 118/76; PULSE 90; RESP 16; TEMP 36.5; O2SAT 100
[2022-05-24 09:14] VITALS: O2SAT 100
[2022-05-24 09:15] VITALS: BP 125/95; PULSE 85; O2SAT 100
--- NOTE | 2022-05-24 09:57 | ED.URI ---
HPI - URI/Sore Throat General Chief Complaint: Upper Respiratory Infection Stated Complaint: INFLUENZA A CHEST CONGESTION Time Seen by Provider: 05/24/22 09:05 Source: patient Mode of arrival: ambulatory Limitations: no limitations History of Present Illness HPI Narrative: 31-year-old female recently diagnosed with influenza A on Saturday, symptoms started on Saturday presents today with complaints of feeling worse. Patient states yesterday she was feeling better but today cough has been worse, shortness of breath, and malaise. Patient has only been using Tylenol or ibuprofen as needed for pain. She has not been using anything for cough. She has been using her albuterol inhaler a couple times a day for shortness of breath. Patient states that her whole family is sick. She is concerned that she might have pneumonia. Patient did take azithromycin at home and has had 2 doses. Related Data Allergies Allergy/AdvReac Type Severity Reaction Status Date / Time Penicillins Allergy Unknown rash Verified 07/18/21 11:15 itching and gastritis Review of Systems Review of Systems: CONSTITUTIONAL: Positive for malaise. Denies fever, chills, or sweats. EYES: Denies visual changes, redness, or discharge. ENT: Congestion, rhinorrhea. Denies sore throat, or otalgia. CARDIOVASCULAR: Denies chest pain, palpitations, or edema. RESPIRATORY: Cough and dyspnea on exertion GASTROINTESTINAL: Denies abdominal pain, nausea, vomiting, or diarrhea. GENITOURINARY: Denies dysuria or hematuria. SKIN: Denies rash or itching. MUSCULOSKELETAL: Myalgia. denies back pain, joint pain. NEUROLOGIC: Denies headache, numbness, dizziness, or weakness. PSYCHIATRIC: Denies anxiety or depression. [facility] Past Medical History Medical History Anxiety 2005 Asthma 2016 Depression 2018 History of hyperlipidemia History of pre-eclampsia 08/2017 Surgical History Surgical History History of section x2 History of colonoscopy 2006 History of left nephrectomy 1993 History of tonsillectomy and adenoidectomy Family History Family History Grandparent Acute myocardial infarction Carcinoma of colon Father Hyperlipidemia Hypertension Mother , 2008 Brain cancer Bone cancer Lung cancer Other Patient's mother is Social History Social History Smoking status: Never smoker Alcohol intake: never Substance use: never Gender identity (if verbalized by the patient): Female Spiritual care concerns: No Exam Narrative: GENERAL: Well-appearing, well-nourished, and in no acute distress. HEAD: Normocephalic, atraumatic. EYES: PERRLA and EOMI. ENT: Nares clear, no rhinorrhea or epistaxis. Mucous membranes moist. Oropharynx without tonsillar hypertrophy exudate or other lesions. Bilateral TMs pearly cannon nonbulging NECK: Supple. No adenopathy or masses. No carotid bruits or JVD CHEST: Clear to auscultation. No respiratory distress. No wheezes rales or rhonchi HEART: Regular rate and rhythm. No murmur heard. Normal peripheral pulses. SKIN: Warm, dry, no rash. NEURO: No focal deficits. Alert and oriented x3. PSYCH: Normal mood and affect. Course Vital Signs Vital signs: Vital Signs Temperature 97.7 F 05/24/22 08:59 Pulse Rate 90 05/24/22 08:59 Respiratory Rate 16 05/24/22 08:59 Blood Pressure 118/76 05/24/22 08:59 Pulse Oximetry 100 05/24/22 08:59 Oxygen Delivery Room Air 05/24/22 08:59 Temperature 97.7 F 05/24/22 08:59 Pulse Rate 84 05/24/22 10:49 Respiratory Rate 16 05/24/22 08:59 Blood Pressure 107/73 05/24/22 10:49 Pulse Oximetry 100 05/24/22 10:49 Oxygen Delivery Room Air 05/24/22 09:14 MDM - URI/Sore Throat MDM Narrative Me
[2022-05-24 10:49] VITALS: BP 107/73; PULSE 84; O2SAT 100
[2022-05-24] MEDS: BENZONATATE 100 MG CAPSULE 200 MG PO (10:53)
== END 2022-05-24 10:58 | disposition home or self-care (01) ==
PROVIDERS: Emergency Provider Nurse Practitioner Family; PCP Internal Medicine
DX: J10.1 Influenza due to other identified influenza virus with other respiratory manifestations (principal); J45.909 Unspecified asthma, uncomplicated; E78.5 Hyperlipidemia, unspecified; Z90.5 Acquired absence of kidney
CPT/HCPCS: 71046; 99283; A9270

== ENCOUNTER 2022-07-13 10:29 | Outpatient (CLI) | payer BC, SELFPAY ==
[2022-07-13 11:40] LABS: Hepatitis B Surface Antigen Negative (Negative); Rubella IgG Antibody 17.5 IU/ML
[2022-07-13 11:48] LABS: HIV 1/2 Ab P24 Ag Result Negative (Negative)
[2022-07-13 11:57] LABS: Rapid Plasma Reagin Non-Reactive (NonReactive)
[2022-07-18 15:52] LABS: CMV IgG Antibody <0.60 U/mL (<0.60)
== END 2022-07-13 10:30 | disposition home or self-care (01) ==
PROVIDERS: PCP Internal Medicine; Visit Provider Obstetrics & Gynecology
DX: N91.2 Amenorrhea, unspecified (principal)
CPT/HCPCS: 36415; 84702; 86592; 86644; 86703; 86747; 86762; 86787; 86850; 86900; 86901; 87086; 87340; G0432

== ENCOUNTER → 2023-01-15 08:15 | Outpatient (CLI) | payer BC, SELFPAY ==
--- NOTE | ~2023-01-15 | US_ITS ---
Limited Abdominal Sonogram: Real-time sonographic imaging of the right upper quadrant was performed. Clinical History: Right upper quadrant pain Findings: The liver appears normal with no evidence of mass lesion or bile duct dilatation. Main por janak vein demonstrates normal direction of flow. The gallbladder is well distended, and appears normal with no evidence of gallstone or wall thickening. The common bile duct measures 3 mm. The visualize d pancreas, aorta, and IVC are unremarkable. Probable mild right hydronephrosis, partially imaged. Impression: Probable mild right hydronephrosis, partially imaged. No other significant findings in the right upper quadrant. Reviewed, dictated and finalized at location . Impression: Probable mild right hydronephrosis, partially imaged. No other significant findings in the right upper quadrant.
== END ==
PROVIDERS: PCP Internal Medicine; Visit Provider Student in an Organized Health Care Education/Training Program
DX: O26.899 Other specified pregnancy related conditions, unspecified trimester (principal); Z3A.00 Weeks of gestation of pregnancy not specified
CPT/HCPCS: 76705

== ENCOUNTER 2023-02-18 16:35 | Outpatient (CLI) | payer BC, SELFPAY ==
[2023-02-18 16:57] LABS: Basophils Absolute Auto 0.1 K/mm3 (0.0-0.1); Basophils Percent Auto 0.5 % (0.2-1.2); Eosinophils Absolute Auto 0.1 K/mm3 (0-0.3); Eosinophils Percent Auto 0.9 % (0-4.4); Hematocrit 36.6 % (37.0-47.0); Hemoglobin 12.2 g/dL (12.0-15.0); Immature Granulocyte Absolute 0.15 K/mm3 (0.00-0.031); Immature Granulocyte Percent A 1.4 % (0-0.5); Lymphocytes Absolute Auto 2.73 K/mm3 (0.9-3.2); Lymphocytes Percent Auto 25.8 % (18.3-44.2); Mean Corpuscular HGB Conc 33.3 g/dl (32-36); Mean Corpuscular Volume 89.9 fl (80-100); Monocytes Absolute Auto 0.8 K/mm3 (0.1-0.6); Monocytes Percent Auto 7.5 % (2.6-8.5); Neutrophils Absolute Auto 6.8 K/mm3 (1.3-6.7); Neutrophils Percent Auto 63.9 % (45.5-73.1); Platelet Count Result 156 k/mm3 (150-375); Red Blood Count 4.07 M/mm3 (4.2-5.4); Red Cell Distribution Width 13.8 % (11.5-14.5); White Blood Count 10.6 K/mm3 (4.5-10.0)
[2023-02-19 14:55] LABS: Rapid Plasma Reagin Non-Reactive (NonReactive)
== END 2023-02-18 16:36 | disposition home or self-care (01) ==
LOC: ANHLAB 16:37
PROVIDERS: PCP Internal Medicine; Visit Provider Student in an Organized Health Care Education/Training Program
DX: Z34.93 Encounter for supervision of normal pregnancy, unspecified, third trimester (principal); Z3A.00 Weeks of gestation of pregnancy not specified
CPT/HCPCS: 36415; 85025; 86592

== ENCOUNTER 2023-02-19 05:31 | Inpatient (IN) | payer BC, SELFPAY ==
--- NOTE | 2023-02-02 14:58 | PC.NURSE ---
Verified with OR schedule and patient--C/S 0n 02/19/23 at 0730 Patient given requisition for lab draw on 02/18/23
--- NOTE | 2023-02-18 18:04 | PM.IMHP ---
H&P: HPI History of Present Illness Date/Time: 02/18/23 18:04 Chief Complaint: Intrauterine at term prior x2 Narrative: 32 yo at 39w who presents for repeat . Her has been uncomplicated thus far. Review of Systems Cardiovascular: Cardiovascular: Denies chest pain, Denies leg edema, Denies palpitations, Denies dyspnea and Denies dyspnea on exertion Respiratory: Respiratory: Denies cough, Denies dyspnea and Denies dyspnea on exertion Gastrointestinal: Gastrointestinal: Denies abdominal pain, Denies constipation, Denies diarrhea, Denies nausea and Denies vomiting Genitourinary: Genitourinary: Denies hematuria, Denies urinary frequency, Denies dysuria, Denies pelvic pain, Denies urinary incontinence and Denies vaginal discharge Neurologic: Reports system reviewed and no additional complaints, except as documented Psychiatric: Psychiatric: Reports no additional psychiatric complaints Endocrine: Endocrine: Denies palpitations PMFSH Past Medical History Medical History Anxiety 2005 Asthma 2016 Depression 2018 History of hyperlipidemia History of pre-eclampsia 08/2017 Surgical History Surgical History History of section x2 History of colonoscopy 2006 History of left nephrectomy 1993 History of tonsillectomy and adenoidectomy Family History Family History Grandparent Acute myocardial infarction Carcinoma of colon Father Hyperlipidemia Hypertension Mother , 2007 Brain cancer Bone cancer Lung cancer Other Patient's mother is Social History Social History Smoking status: Never smoker Alcohol intake: never Substance use: never Substance use type: does not use Lack of Transportation: No Lack of Food: Never True Current Housing: I Have Housing Concerned About Future Housing: No Difficulty Paying Gas/Electric Bills: No Difficulty Paying for Meds: No Currently Unemployed: No Education: High School Diploma/GED Difficulty w/ Childcare or Family Care: No Living arrangements: other Additional living arrangements comments: Occupation/Education: other Additional occupation/education comments: stay at home mom Gender identity (if verbalized by the patient): Female Sexual Orientation (if Verbalized by the Patient): Straight or Heterosexual Spiritual care concerns: No Meds Home Medications and Allergies Home Medications Medication Instructions Recorded Confirmed Type albuterol sulfate 90 mcg/actuation 2 inh inhalation QID PRN shortness 05/24/22 11/15/22 Rx aerosol inhaler of breath or wheezing #8.5 grams aspirin 81 mg capsule 81 mg PO DAILY 08/14/22 11/15/22 History prenat.vits,german,[id number] 1 tablet PO DAILY 08/14/22 11/15/22 History Allergies Allergy/AdvReac Type Severity Reaction Status Date / Time Penicillins Allergy Mild rash Verified 02/14/23 10:29 itching and gastritis Exam Const: General: no acute distress Eyes: EOM: EOMs intact bilaterally Neck: Neck: supple Thyroid: thyroid normal Chest: Breast/axilla inspection: normal inspection of the breasts Breast/axilla palpation: normal palpation of the breasts, normal palpation of the axillae and no axillary lymphadenopathy Resp: Effort & Inspection: normal respiratory effort Auscultation: clear to auscultation bilaterally Cardio: Rate: regular rate Rhythm: regular rhythm GI: Inspection: non-distended and other (Gravid) GI Palp: Yes Soft to palpation, No Tenderness to palpation present (GI) and No Guarding due to palpation present (GI) Auscultation: normal bowel sounds : Speculum Exam - Vagina: No vaginal bleeding OB/external & speculum: external exam normal;
[2023-02-19] VITALS (57 sets, daily range): BP systolic 84–116; BP diastolic 49–80; PULSE 25–93; RESP 13–20; TEMP 36.2–36.8; O2SAT 84–100; BMI 33.0
--- NOTE | 2023-02-19 05:39 | LDADM ---
This patient, Naty Barnes, was admitted to Labor/Delivery/Recovery 120 on 02/19/23 at 05:31. Plans for labor, pain management and were discussed with patient. Patient/family oriented to hospital policies and general routines including ID bracelet, bed and alarms, visiting hours, pain management, procedures, bathroom and other care routines, personal items, smoking policy, room service/diet and guest tray routines, infant security routines, and visiting hours. Patient/Family are encouraged to report perceived risks to care and to ask questions if they do not understand what they are told or what they should do. See OBIX for further documentation.
[2023-02-19] MEDS: LACTATED RINGERS 1,000 ML 125 ML IV CONT (06:05)
[2023-02-19] MEDS: PHENYLEPHRINE 1,000 MCG/10 ML SYRINGE 100 MCG IV PUSH (06:07)
--- NOTE | 2023-02-19 06:16 | WPDANESEPPF ---
Anes - Initial Pre Proc Eval Procedure: Operation Date: 02/19/23 07:30 Proposed Procedures p Repeat Section - Steve Gurrola MD Date/Time: 02/19/23 06:16 Surgeon: Steve Gurrola MD Pre Op Diagnosis: Repeat Pre Op Diagnosis: Section Patient Data Age: 32 Gender: F Height: 1.65 m Weight: 90 kg Last Vital Signs Temp 36.8 C 02/19/23 05:57 Pulse 89 02/19/23 06:16 BP 116/80 02/19/23 06:16 Pulse Ox 100 02/19/23 06:15 O2 Del Method Room Air 02/19/23 05:46 Allergies Allergy/AdvReac Type Severity Reaction Status Date / Time Penicillins Allergy Mild rash Verified 02/14/23 10:29 itching and gastritis Home Medications Medication Instructions Recorded Confirmed Type albuterol sulfate 90 mcg/actuation 2 inh inhalation QID PRN shortness 05/24/22 02/19/23 Rx aerosol inhaler of breath or wheezing #8.5 grams aspirin 81 mg capsule 81 mg PO DAILY 08/14/22 02/19/23 History prenat.vits,german,[id number] 1 tablet PO DAILY 08/14/22 02/19/23 History Patient hx anesthesia problems: none Family hx anesthesia problems: none Results Review: All pre-operative results and documents have been reviewed as part of the pre-operative evaluation. [facility] Past Medical History Medical History Anxiety 2005 Asthma 2016 Depression 2017 History of hyperlipidemia History of pre-eclampsia 08/2017 Surgical History Surgical History History of section x2 History of colonoscopy 2006 History of left nephrectomy 1993 History of tonsillectomy and adenoidectomy Family History Family History Grandparent Acute myocardial infarction Carcinoma of colon Father Hyperlipidemia Hypertension Mother , 2007 Brain cancer Bone cancer Lung cancer Other Patient's mother is Social History Social History Smoking status: Never smoker Alcohol intake: never Substance use: never Substance use type: does not use Lack of Transportation: No Lack of Food: Never True Current Housing: I Have Housing Concerned About Future Housing: No Difficulty Paying Gas/Electric Bills: No Difficulty Paying for Meds: No Currently Unemployed: No Education: High School Diploma/GED Difficulty w/ Childcare or Family Care: No Living arrangements: other Additional living arrangements comments: Occupation/Education: other Additional occupation/education comments: stay at home mom Gender identity (if verbalized by the patient): Female Sexual Orientation (if Verbalized by the Patient): Straight or Heterosexual Spiritual care concerns: No Anes - Eval Final PreProcedure Day of Procedure 02/19/23 06:16 Patient weight: normal Heart: regular rate and rhythm Lungs: clear to auscultation Airway: Mallampati scale class II Neurological: alert and oriented Last oral intake: 6 hours ASA classification: III Emergent: no Anesthetic plan: proceed Anesthesia type and monitoring: regional spinal and standard monitoring Results Review: All pre-operative results and documents have been reviewed as part of the pre-operative evaluation. Informed Consent: The patient's anesthetic plan and its attendant risks and benefits were discussed with the patient/family/POA. Questions were solicited and answers provided to the satisfaction of the patient/family/POA.
--- NOTE | 2023-02-19 06:55 | P.PNAN_ITS ---
Anes - Eval Final PreProcedure Day of Procedure 02/19/23 06:55 Patient weight: obese Heart: regular rate and rhythm Lungs: clear to auscultation and normal air movement Airway: Mallampati scale class II Neurological: alert and oriented Last oral intake: >/= 8 hours ASA classification: III Emergent: no Anesthetic plan: proceed Anesthesia type and monitoring: regional spinal and standard monitoring Results Review: All pre-operative results and documents have been reviewed as part of the pre- operative evaluation. Informed Consent: The patient's anesthetic plan and its attendant risks and benefits were discussed with the patient/family/POA. Questions were solicited and answers provided to the satisfaction of the patient/family/POA.
[2023-02-19] MEDS: ceFAZolin 2 GM/D5W 50 ML 2 GM/50 ML BAG IVPB (07:06)
--- NOTE | 2023-02-19 08:05 | W.PM.PROC2 ---
Procedure Note - Detailed Date of Procedure 02/19/23 Pre-op Diagnosis Section intrauterine at term Post-op Diagnosis Same Procedure Performed low transverse section Surgeon Steve Gurrola MD Anesthesia Spinal and Epidural Description of Procedure The patient was taken to the operating room. A combined spinal epidural anesthesic was administered and found to be adequate at a t-10 level. The patient was placed in a supine position with a slight left lateral tilt. A valladares catheter was placed with return of clear urine. A Bovie grounding pad was placed. Surgical prep was performed and surgical drapes were placed. A surgical time out was performed. A Pfannenstiel skin incision was then made with the scalpel and carried through to the underlying layer of fascia. The fascia was then incised in the midline and the incision was extended laterally with the Perales scissors. The superior aspect of the fascia was then grasped with the Isabela clamps, elevated, and the underlying rectus muscles dissected off bluntly and sharply. Attention was then turned to the inferior aspect of this incision which, in a similar fashion, was grasped, tented up with the Isabela clamps, and the rectus muscles dissected off both bluntly and sharply. The rectus muscles were then in the midline. The peritoneum was identified and entered bluntly. The peritoneal incision was then extended superiorly and inferiorly with good visualization of the bladder. The vesico-uterine serosa was identified and dissected to create a bladder flap. The bladder blade was reinserted. The uterus was inspected for rotation. A low-transverse uterine incision was made sharply with the scalpel and entry was made into the uterine cavity. An amniotomy was made and copious amounts of clear fluid were noted on return. The uterine incision was extended laterally bluntly. The bladder blade was removed and the fetus was delivered atraumatically. The nose and mouth were suctioned with a bulb syringe. The umbilical cord was clamped twice and cut. The was handed off to the waiting staff. At the time of the delivery, the had good color, tone and grimace. The infant cried with minimal stimulation. A second segment of umbilical cord was clamped and cut for cord blood gasses. Cord blood was collected for determination of the blood type and for direct Calle. The placenta was delivered spontaneously without difficulty. The placenta appeared grossly normal and complete. The uterus was exteriorized and cleared of all clots and debris. The uterine incision was repaired using 0-monocryl suture in a running fashion. A second layer of 0 Monocryl suture was used in an imbricating fashion to obtain excellent hemostasis and uterine strength. The uterine closure was inspected for hemostasis. The posterior aspect of the uterus and the broad ligaments were inspected and the posterior cul-de-sac cleared of fluid and blood clots. The uterine closure was again inspected and found to be hemostatic. The uterus was returned to the abdominal cavity. The pericolic gutters were inspected and were cleared of all blood clots and debris. The uterine closure was then re inspected to ensure hemostasis as were all subfascial tissues. The peritoneum was closed using 3-0 vicryl in a running fashion. The fascia was reapproximated with 0-vicryl in a running fashion. The subcutaneous tissue was irrigated and hemostasis achieved with electrocautery. It was reapproximated with 3-0 vicryl in a running fashion. The skin was closed with 4-0 vicryl in a subcuticular fashion. A sterile dressing was applied to the wound. The patient tolerated the procedure well. Sponge, lap and needle counts were correct times three. The patient was taken to recovery in stable condition and without anticipated complications. Drains No Packing No Pathology None sent Complications No immediate complications Condition Stable Di
[2023-02-19] MEDS: OXYTOCIN 30 UNITS/NS 500 ML 30 UNITS/500 ML BAG 125 UNITS IV CONT (09:40)
--- NOTE | 2023-02-19 10:15 | PC.NURSE ---
Patient transferred to post room #281 via stretcher. Support person present. Oriented to unit, room, information board, rooming in, admission packet and security measures. Patient verbalizes understanding.
[2023-02-19] MEDS: DEXTROSE 5%/0.45% SOD CHL 1,000 ML 125 ML IV CONT (12:31)
[2023-02-19] MEDS: IBUPROFEN 600 MG TABLET PO (13:56)
[2023-02-19] MEDS: DOCUSATE SODIUM 100 MG CAPSULE PO (13:57)
[2023-02-19] MEDS: ACETAMINOPHEN 325 MG TABLET 650 MG PO (19:00)
[2023-02-20 05:00] VITALS: BP 107/55; PULSE 85; RESP 16; TEMP 36.4
[2023-02-20] MEDS: IBUPROFEN 600 MG TABLET PO ×3 (05:20→18:54)
[2023-02-20 05:40] LABS: Basophils Percent Auto 0.3 % (0.2-1.2); Eosinophils Absolute Auto 0.2 K/mm3 (0-0.3); Eosinophils Percent Auto 1.6 % (0-4.4); Hematocrit 34.8 % (37.0-47.0); Hemoglobin 11.1 g/dL (12.0-15.0); Immature Granulocyte Absolute 0.13 K/mm3 (0.00-0.031); Immature Granulocyte Percent A 1.1 % (0-0.5); Lymphocytes Absolute Auto 1.77 K/mm3 (0.9-3.2); Lymphocytes Percent Auto 15.6 % (18.3-44.2); Mean Corpuscular HGB Conc 31.9 g/dl (32-36); Mean Corpuscular Hemoglobin 29.7 pg (26-34); Mean Platelet Volume 10.5 fl (7.4-10.4); Monocytes Absolute Auto 0.7 K/mm3 (0.1-0.6); Monocytes Percent Auto 6.3 % (2.6-8.5); Neutrophils Absolute Auto 8.5 K/mm3 (1.3-6.7); Neutrophils Percent Auto 75.1 % (45.5-73.1); Platelet Count Result 141 k/mm3 (150-375); Red Blood Count 3.74 M/mm3 (4.2-5.4); White Blood Count 11.3 K/mm3 (4.5-10.0)
[2023-02-20 07:35] VITALS: BP 100/61; PULSE 81; RESP 18; TEMP 37.1; O2SAT 99
--- NOTE | 2023-02-20 08:46 | PM.OBPNVD ---
OB - PN: Subj Subjective Date/time seen: 02/20/23 08:46 Patient comments: no complaints, pain well controlled, tolerating diet and flatus present OB - PN: Obj Data Labs 02/20/23 05:15 Labs: Laboratory Results - last 24 hr 02/20/23 05:15 WBC 11.3 H RBC 3.74 L Hgb 11.1 L Hct 34.8 L MCV 93.0 MCH 29.7 MCHC 31.9 L RDW 14.0 Plt Count 141 L MPV 10.5 H Immature Gran % (Auto) 1.1 H Neut % (Auto) 75.1 H Lymph % (Auto) 15.6 L [place] % (Auto) 6.3 Eos % (Auto) 1.6 Baso % (Auto) 0.3 Lymph # (Auto) 1.77 [place] # (Auto) 0.7 H Eos # (Auto) 0.2 Baso # (Auto) 0.0 Abs Immat Gran (auto) 0.13 H Absolute Neuts (auto) 8.5 H Absolute Nucleated RBC 0.0 Nucleated RBC % 0.0 OB - PN A/P Plan day: 1 Plan: routine care Comments: patient doing well H/H stable afebrile, VSS incision C/D/I valladares removed, voiding spontaneously pt request circumcision. risks and benefits discussed. continue routine post op care Time Spent With Patient Time: Total time spent is greater than 50% in coordination of care (as documented) at patient's floor/unit and/or counseling patient: Time with patient: less than 15 minutes Review of Systems Constitutional: Constitutional: Reports no additional constitutional complaints Cardiovascular: Cardiovascular: Reports no additional cardiovascular complaints Respiratory: Respiratory: Reports no additional respiratory complaints Gastrointestinal: Gastrointestinal: Reports no additional gastrointestinal complaints Genitourinary: Genitourinary: Reports no additional female genitourinary complaints Exam Const: General: comfortable and no acute distress Resp: Effort & Inspection: normal respiratory effort Auscultation: clear to auscultation bilaterally Cardio: Rate: regular rate GI: GI Palp: Yes Soft to palpation, Yes Tenderness to palpation present (GI) (around incision ) and No Guarding due to palpation present (GI) Auscultation: normal bowel sounds Other: incision C/D/I, covered with Dermabond Psych: Appearance: grossly normal Mental Status: mental status grossly normal Affect: normal affect
[2023-02-20] MEDS: ACETAMINOPHEN 325 MG TABLET 650 MG PO ×3 (08:54→22:04)
[2023-02-20] MEDS: MULTIVIT/MIN/PREN/FOL AC/IRON TABLET 1 TAB PO (08:56)
[2023-02-20] MEDS: DOCUSATE SODIUM 100 MG CAPSULE PO ×2 (08:56→20:56)
--- NOTE | 2023-02-20 10:01 | PM.OBDSVD ---
DS: Admitting Diagnosis Discharge Date 02/21/23 Admitting Diagnosis Intrauterine at term prior section DS: Discharge Diagnosis Discharge Diagnosis (1) Previous section complicating , antepartum condition or complication: Code(s): O34.219 - Maternal care for unspecified type scar from previous delivery Status: Acute (2) Supervision of high risk , unspecified, third trimester: Code(s): O09.93 - Supervision of high risk , unspecified, third trimester Status: Acute OB - DS: Summary OB Procedures : None OB Procedures Intrapartum: OB Procedures: : None Peripartum Data Infant Delivery Method: Section Procedures: Procedures Operation Date: 02/19/23 07:30 Actual Procedure Side Surgeon p Repeat Section Bilateral Steve Gurrola MD complications: none Status at Discharge Functional status at discharge: independent ambulation Overall status at discharge: patient is progressing back to baseline Time Spent with Patient Time attestation: Total time spent providing and/or coordinating discharge services: Time spent: Less than 30 minutes Exam Const: General: comfortable and no acute distress Resp: Effort & Inspection: normal respiratory effort Auscultation: clear to auscultation bilaterally Cardio: Rate: regular rate GI: Inspection: non-distended GI Palp: Yes Soft to palpation, No Firmness to palpation present (GI), Yes Tenderness to palpation present (GI) (mild tenderness over incision ) and No Guarding due to palpation present (GI) Auscultation: normal bowel sounds Psych: Appearance: grossly normal Mental Status: mental status grossly normal DS: Data Data Completed and Pending Labs on day of discharge: Labs from last 24 hours 02/20/23 05:15 WBC 11.3 H RBC 3.74 L Hgb 11.1 L Hct 34.8 L MCV 93.0 MCH 29.7 MCHC 31.9 L RDW 14.0 Plt Count 141 L MPV 10.5 H Immature Gran % (Auto) 1.1 H Neut % (Auto) 75.1 H Lymph % (Auto) 15.6 L [place] % (Auto) 6.3 Eos % (Auto) 1.6 Baso % (Auto) 0.3 Lymph # (Auto) 1.77 [place] # (Auto) 0.7 H Eos # (Auto) 0.2 Baso # (Auto) 0.0 Abs Immat Gran (auto) 0.13 H Absolute Neuts (auto) 8.5 H Absolute Nucleated RBC 0.0 Nucleated RBC % 0.0 Discharge Plan Discharge Discharging Clinician: Steve Gurrola Patient Disposition: Home, Self-Care Activity: as tolerated and pelvic rest Diet: regular Discharge Instructions: Education: Mom and Baby Guide Given to: Mother Follow-Up: Call your delivering provider's office for an appointment to be seen in: 1 Week Mom and baby should come to the [facility] for the follow-up appointment. Appointment Date/Time: February 22, 2023 at 9:00 am What to expect at your follow-up visit: Blood Pressure Check Physical Assessment Call [phone] if you are unable to keep your appointment time. BREAST CARE: * Wear a snug supportive bra. * For engorgement discomfort: Breast Feeding: * Apply warm moist washcloths * Express milk as needed to relieve engorgement * Wear loose clothing Bottle Feeding: * May apply ice packs * For sore nipples: * Identify correct latch-on * Apply warm moist washcloths before and after nursing * Air dry nipples after nursing * May apply Lansinoh cream to nipples ABDOMINAL INCISION: (if applicable) * Do NOT use lotions for powders on your incision * When showering, allow soap and water to run over the incision, wash gently with a clean wash cloth *Gently dry incision using a clean dry towel EPISIOTOMY/PERINEAL CARE: * Until bleeding stops, use your joseph bottle after urinating * Change your pad frequently throughout the day * No tub baths until seen by your physician - You may shower ACTIVITY: * Rest as much as possible. * Do
--- NOTE | 2023-02-20 12:23 | WPDANLDNPN2 ---
Anes-Prog Note L&D-Neuraxial Date/Time: 02/20/23 12:23 Neuraxial medications: intrathecal PF morphine Opiod-related complaints: none Patient feedback: Patient satisfied with post-operative pain management.
--- NOTE | 2023-02-20 12:23 | WPDANLDPN2 ---
Anes-Prog Note L&D Date/Time: 02/20/23 12:23 Comfortable throughout: section Neuraxial method: spinal Neuro status: Neuro function grossly intact. Cardiovascular status: normal Respiratory status: normal Airway patency: baseline Mental status: baseline Post-Op hydration status: normal Vital Signs: Last Vital Signs Temp 37.1 C 02/20/23 07:35 Pulse 81 02/20/23 07:35 Resp 18 02/20/23 07:35 BP 100/61 02/20/23 07:35 Pulse Ox 99 02/20/23 07:35 O2 Del Method Room Air 02/20/23 09:50 Pain score (VAS): 1 I/O: Intake & Output 02/19/23 02/20/23 02/20/23 23:59 07:59 15:59 Intake Total 500 800 500 Output Total 400 4100 Balance 100 -3300 500 Post-procedural complaints: none Patient feedback: Patient satisfied with anesthetic care.
--- NOTE | 2023-02-20 15:16 | PC.NURSE ---
[id number] Mother is demonstrating her ability to independently latch with appropriate positioning/alignment in cross cradle position to the left breast. She denies any nipple discomfort and is responsively . Infant is currently meeting outcomes for weight, output, jaundice and feeding frequencies of 8-12 times in 24 hours. Mother declines any additional assistance/education at this time. Mother is encouraged to call for assistance if her doesn?t latch or there is discomfort with latching. Mother voiced understanding of information shared and the mom reminded of the mom/baby guide for an additional resource. Reported to the primary RN.
[2023-02-20 17:00] VITALS: BP 110/69; PULSE 87; RESP 18; TEMP 36.9; O2SAT 98
[2023-02-20 19:00] VITALS: BP 101/58; PULSE 71; RESP 16; TEMP 36.9; O2SAT 99
[2023-02-20] MEDS: LIDOCAINE 5% PATCH 1 PATCH TRANSDERM (20:54)
[2023-02-21] MEDS: IBUPROFEN 600 MG TABLET PO ×2 (04:50→11:36)
--- NOTE | 2023-02-21 07:42 | PM.OBDSVD ---
DS: Admitting Diagnosis Discharge Date 02/21/2023 Admitting Diagnosis DS: Discharge Diagnosis Discharge Diagnosis (1) , delivered: Code(s): O80 - Encounter for full-term uncomplicated delivery Status: Acute OB - DS: Summary OB Procedures : None OB Procedures Intrapartum: OB Procedures: : None Peripartum Data Procedures: Procedures Operation Date: 02/19/23 07:30 Actual Procedure Side Surgeon p Repeat Section Bilateral Steve Gurrola MD Time Spent with Patient Time attestation: Total time spent providing and/or coordinating discharge services: Discharge Plan Discharge Discharging Clinician: Steve Gurrola Patient Disposition: Home, Self-Care Activity: as tolerated and pelvic rest Diet: regular Patient Instructions: Antibiotic Form, (DC) Stand Alone Forms: General Discharge Information Follow-up/Referrals: Steve Gurrola MD [Physician] - Discharge Medications: New oxycodone-acetaminophen 5-325 mg tablet 1 tablet PO Q6H PRN (Reason: pain) Qty: 28 0RF ibuprofen 600 mg tablet 600 mg PO Q6H PRN (Reason: pain) Qty: 30 0RF Continued aspirin 81 mg capsule 81 mg PO DAILY prenat.vits,german,hhf-iptr-oedui Tablet 1 tablet PO DAILY albuterol sulfate 90 mcg/actuation HFA aerosol inhaler 2 inh inhalation QID PRN (Reason: shortness of breath or wheezing) Qty: 8.5 0RF Date of admission: 02/19/23 05:31 Primary Care Provider: Stephanie,Herson Admitting Provider: Steve Gurrola Attending physician on admission: Steve Gurrloa Condition: Stable
[2023-02-21 07:50] VITALS: BP 114/62; PULSE 64; RESP 18; TEMP 36.7; O2SAT 100
[2023-02-21] MEDS: ACETAMINOPHEN 325 MG TABLET 650 MG PO (08:54)
[2023-02-21] MEDS: MULTIVIT/MIN/PREN/FOL AC/IRON TABLET 1 TAB PO (08:57)
[2023-02-21] MEDS: DOCUSATE SODIUM 100 MG CAPSULE PO (08:58)
--- NOTE | 2023-02-21 14:13 | PC.NURSE ---
[id number] Mother led the conversation with her experience and plan to feed her so far and her ability to independently latch optimally without discomfort. Reminded parents to use good handwashing technique to prevent infection. Mother is feeding appropriately for growth of and understands stimulating to eat if needed. Infant has had appropriate feedings in the last 24 hours meets the outcomes for weight, output and jaundice at this time. Mother states she is confident to continue effectively her infant at home, when to call for assistance and denies any additional assistance or education at this time. Reinforced understanding of milk production, transition of milk, signs of adequate intake, transition of stool, prevention/relief of engorgement, plugged ducts, mastitis, responsive watching for feeding cues, the different methods of stimulating to breastfeed 2-3 hours after the start of the last feeding, community resources and when to call a provider using the resource of the mom and baby guide. Mother voiced understanding of the education shared. Reported to the primary RN.
[2023-02-22 09:40] VITALS: BP 117/81; PULSE 100; RESP 18; TEMP 36.9; O2SAT 99
== END 2023-02-21 12:25 | disposition home or self-care (01) | DRG 788 ==
LOC: ANHLDR 05:35 → ANHOB2 10:33
PROVIDERS: Admitting Provider Student in an Organized Health Care Education/Training Program; PCP Internal Medicine; Visit Provider Student in an Organized Health Care Education/Training Program
PROC: 10D00Z1 Extraction of Products of Conception, Low, Open Approach (ICD-10-PCS; CPT 59514; principal; 2023-02-19 07:30)
DX: O34.211 Maternal care for low transverse scar from previous cesarean delivery (principal); Z37.0 Single live birth; Z3A.39 39 weeks gestation of pregnancy
CPT/HCPCS: 36415; 85025; A9270; J0690; J2274; J2371; J2590; J7120

== ENCOUNTER 2023-12-17 09:13 | Outpatient (CLI) | payer BC, SELFPAY ==
--- NOTE | ~2023-12-17 | XR_ITS ---
XR knee LT min 4V Ordering provider: Micah Cooney MD History: . POSTERIOR Left knee pain . Comparison: None. FINDINGS: BONES: No acute fracture or dislocation. JOINT SPACES: Normal. SOFT TISSUES: Normal. IMPRESSION: No acute osseous abnormality left knee. Reviewed, dictated and finalized at location A.
== END 2023-12-17 09:14 | disposition home or self-care (01) ==
PROVIDERS: PCP Internal Medicine; Visit Provider Orthopaedic Surgery
DX: M25.562 Pain in left knee (principal)
CPT/HCPCS: 73564

== ENCOUNTER 2023-12-21 08:46 | Outpatient (CLI) | payer BC, SELFPAY ==
--- NOTE | ~2023-12-21 | MR_ITS ---
EXAMINATION: MR knee LT wo con DATE: 12/21/2023 09:21 INDICATION: Left knee pain and swelling. TECHNIQUE: Magnetic resonance imaging (MRI) of the left knee was performed without intravenous contra st. Sequences included axial PD-weighted FS FSE, coronal PD-weighted FSE and PD-weighted FS FSE, sagi ttal PD-weighted FSE, and sagittal T2-weighted FS FSE. COMPARISON: Left knee radiographs 12/17/2023 FINDINGS: Medial compartment: Medial meniscus is normal. Medial compartment cartilage is normal. Lateral compartment: Lateral meniscus is normal. Lateral compartment cartilage is normal. Patellofemoral compartment: Patellar cartilage is normal. Trochlear cartilage is normal. Ligaments and tendons: The anterior and posterior cruciate ligaments are normal. Medial collateral ligament is normal. There are changes of prior sprain of fibular collateral ligament characterized by thickening and increased signal intensity proximally. There is mild patellar tendinopathy. There is a hematoma in semimembran osus muscle belly, consistent with grade 2 strain. Fluid: There is a small knee joint effusion. There is edema in Hoffa's fat pad superiorly and in the prefemo ral fat pad, which is nonspecific but may be seen with impingement. There is trace fluid in a Sequeira's cyst. IMPRESSION: 1. Grade 2 strain of semimembranosus muscle. Reviewed, dictated and finalized at location E.
== END 2023-12-21 08:47 ==
LOC: MICIMG 08:47
PROVIDERS: PCP Orthopaedic Surgery; Visit Provider Orthopaedic Surgery
DX: M25.562 Pain in left knee (principal); M79.89 Other specified soft tissue disorders
CPT/HCPCS: 73721

== ENCOUNTER 2024-09-19 07:33 | Outpatient (CLI) | payer BC, SELFPAY ==
--- NOTE | ~2024-09-19 | XR_ITS ---
XR sacroiliac joints min 3V 09/19/2024 08:09 Indication: Coccygeal pain Procedure: 3 views of the sacroiliac joints Comparison: No prior studies for comparison. Findings: Sacral foramen are symmetric. Sacroiliac joints are symmetric. No significant degenerative change, retrosternal or ankylosis. Impression: 1: No significant abnormality of the sacroiliac joints. Reviewed, dictated and finalized at location B. Impression: 1: No significant abnormality of the sacroiliac joints.
--- NOTE | ~2024-09-19 | US_ITS ---
US abdomen limited INDICATION: Right upper quadrant pain PROCEDURE: Realtime right upper abdominal ultrasound. COMPARISON: No prior studies for comparison. FINDINGS: Ultrasound study limited for evaluation for rectus abdominis diastases. No diastases identi fied. No definite hernia is seen. IMPRESSION: 1: Normal limited soft tissue ultrasound of the abdomen without evidence for hernia. Reviewed, dictated and finalized at location B. IMPRESSION: 1: Normal limited soft tissue ultrasound of the abdomen without evidence for he rnia.
--- NOTE | ~2024-09-19 | XR_ITS ---
EXAMINATION: SACRUM/COCCYX DATE: 09/19/2024 08:09 INDICATION: Coccygeal pain TECHNIQUE: Three views sacrum/coccyx FINDINGS: No prior studies for comparison. There is no displaced fracture of the sacrum. The coccyx demonstrates overall normal morphology with out acute angulation. IMPRESSION: 1. No acute displaced osseous abnormality of the sacrum. Suspicion for occult or nondisplaced sacral fracture can either be evaluated with CT or MRI. 2. Grossly normal morphology to the coccyx without acute angulation. However, due to the wide range of normal variation of the coccyx, acute injury would be best evaluated by clinical examination and patient's symptoms. Reviewed, dictated and finalized at location B.
== END 2024-09-19 07:34 | disposition home or self-care (01) ==
LOC: MICIMG 07:34
PROVIDERS: PCP Internal Medicine; Visit Provider Internal Medicine
DX: M62.08 Separation of muscle (nontraumatic), other site (principal); M53.3 Sacrococcygeal disorders, not elsewhere classified
CPT/HCPCS: 72202; 72220; 76705

== ENCOUNTER 2025-03-23 09:50 | Emergency (ER) | payer BC, SELFPAY ==
[2025-03-23 10:24] VITALS: BP 115/79; PULSE 71; RESP 16; TEMP 36.3; O2SAT 100
--- NOTE | 2025-03-23 11:08 | ED.GENADULT ---
HPI - General Adult General Chief complaint: Upper Respiratory Infection Stated complaint: Strep Symptoms Source: patient Mode of arrival: ambulatory Limitations: no limitations History of Present Illness HPI narrative: Patient presents for evaluation of sick symptoms for last week. Symptoms include bilateral otalgia, cough and sore throat. She states she initially thought she had a cold but now feels like she has strep pharyngitis. Other family members in the home have been sick. She denies fever, chills, nausea, vomiting and diarrhea. She has tried OTC agents without success. She does smoke when consuming ETOH. She has had strep in the past and this feels similar. Related Data Allergies Allergy/AdvReac Type Severity Reaction Status Date / Time Penicillins Allergy Mild rash Verified 03/23/25 10:48 itching and gastritis Review of Systems Review of Systems: CONSTITUTIONAL: Denies fever, chills, or sweats. EYES: Denies visual changes, redness, or discharge. ENT: Reports bilateral otalgia and sore throat CARDIOVASCULAR: Denies chest pain, palpitations, or edema. RESPIRATORY: Reports cough. Denies dyspnea. GASTROINTESTINAL: Denies abdominal pain, nausea, vomiting, or diarrhea. GENITOURINARY: Denies dysuria or hematuria. SKIN: Denies rash or itching. MUSCULOSKELETAL: Denies back pain, joint pain, or myalgia. NEUROLOGIC: Denies headache, numbness, dizziness, or weakness. PSYCHIATRIC: Denies anxiety or depression. FOR[facility]LY [facility] Past Medical History Medical History High cholesterol Contusion of bone Right knee pain Knee hyperextension injury Pelvic floor dysfunction Supervision of high risk , unspecified, third trimester Right upper quadrant abdominal pain affecting Hair loss Breast pain Vulvar irritation Encounter for visit Delivery by section using transverse incision of lower segment of uterus macrosomia Breech presentation Encounter for supervision of normal in multigravida in third trimester Abnormal glucose tolerance test History of pre-eclampsia Asthma Biological false positive RPR test History of hyperlipidemia Asthma 2016 Anxiety 2005 Depression 2018 History of pre-eclampsia 08/2017 Surgical History Surgical History History of tonsillectomy and adenoidectomy History of colonoscopy 2006 Previous section History of left nephrectomy 1994 History of section x3 Family History Family History Grandparent Acute myocardial infarction Carcinoma of colon Father Hyperlipidemia Hypertension Mother , 2007 Brain cancer Bone cancer Lung cancer Other Patient's mother is Social History Social History Smoking status: Never smoker Alcohol intake: never Substance use: never Substance use type: does not use Lack of Transportation: No Lack of Food: Never True Current Housing: I Have Housing Concerned About Future Housing: No Difficulty Paying Gas/Electric Bills: No Difficulty Paying for Meds: No Currently Unemployed: No Education: High School Diploma/GED Difficulty w/ Childcare or Family Care: No Living arrangements: other Additional living arrangements comments: Occupation/Education: other Additional occupation/education comments: stay at home mom Gender identity (if verbalized by the patient): Female Sexual Orientation (if Verbalized by the Patient): Straight or Heterosexual Spiritual care concerns: No Exam Narrative: GENERAL: Well-appearing, well-nourished, and in no acute distress. HEAD: Normocephalic, atraumatic. EYES: PERRLA and EOMI. ENT: Nares clear, no rhinorrhea or epistaxis. Mucous membranes moist. Oropharynx without tonsillar hypertrophy exudate or other lesions. Bilateral TMs pearly cannon nonbulging NECK: Supple. No adenopathy or masses. No carotid bruits or JVD CHEST: Clear to auscultation. No respiratory distress. No wheezes rales or rhonchi HEART: Regular rate and rhythm. No murmur heard. Normal peripheral pulses. ABDOMEN: Soft, nontender, nondistended, normal active bowel sounds. EXTREMITIES: Normal range of motion. No edema. SKIN: Warm, dry, no rash. NEURO: No focal deficits. Alert and oriented x3. PSYCH: Normal mood and affect. Course Course Emergency Course: This is a 34-year-old female who presented for evaluation sore throat bilateral otalgia. Her strep was negative. Will send throat culture. Through shared decision making opted to proceed with azithromycin as her current symptoms are consistent with those she has experienced in the past with strep. She should follow up with primary provider and go to the ER for worsening symptoms. Pt in agreement with plan of care. Level of Care: Express Care Visit Vital Signs Vital signs: Vital Signs Temperature 36.3 C L 03/23/25 10:24 Pulse Rate 71 03/23/25 10:24 Respiratory Rate 16 03/23/25 10:24 Blood Pressure 115/79 03/23/25 10:24 Pulse Oximetry 100 03/23/25 10:24 Temperature 36.3 C L 03/23/25 10:24 Pulse Rate 71 03/23/25 10:24 Respiratory Rate 16 03/23/25 10:24 Blood Pressure 115/79 03/23/25 10:24 Pulse Oximetry 100 03/23/25 10:24 Medical Decision Making Vital Signs Vital Signs: Vital Signs Temperature 36.3 C L 03/23/25 10:24 Pulse Rate 71 03/23/25 10:24 Respiratory Rate 16 03/23/25 10:24 Blood Pressure 115/79 03/23/25 10:24 Pulse Oximetry 100 03/23/25 10:24 Temperature 36.3 C L 03/23/25 10:24 Pulse Rate 71 03/23/25 10:24 Respiratory Rate 16 03/23/25 10:24 Blood Pressure 115/79 03/23/25 10:24 Pulse Oximetry 100 03/23/25 10:24 Discharge Plan Discharge Clinical Impression: Pharyngitis Patient Disposition: Home Condition: Stable Instructions: Antibiotic Form, Pharyngitis (ED) Patient Language: Korean Prescriptions: New azithromycin 250 mg tablet See Rx Instructions .ROUTE .COMPLEX Qty: 6 0RF Rx Instructions: For 250 mg dose pack: take 500 mg today (day 1), then 250 mg for 4 days (days 2-5) No Action albuterol sulfate 90 mcg/actuation HFA aerosol inhaler 2 inh inhalation QID PRN (Reason: shortness of breath or wheezing) Qty: 8.5 0RF Follow-up/Referrals: Stephanie,MD Herson [Primary Care Provider, Unknown] Time of Disposition: 11:08
[2025-03-23 11:11] LABS: EDSTREPNEGPOS1 Negative (Negative)
== END 2025-03-23 11:08 | disposition home or self-care (01) ==
PROVIDERS: Emergency Provider Nurse Practitioner; PCP Internal Medicine
DX: J02.9 Acute pharyngitis, unspecified (principal); E78.00 Pure hypercholesterolemia, unspecified; J45.909 Unspecified asthma, uncomplicated
CPT/HCPCS: 87081; 87880; 99213; G0463